=== PATIENT | female | born 1980 | race American Indian/Alaskan Native ===

== ENCOUNTER 2017-03-16 10:42 | Emergency (ER) | payer SELFPAY ==
--- NOTE | 2017-03-16 10:50 | Emergency Department Report ---
Chief Complaint: Vaginal Bleeding Stated Complaint: BLOOD LOSS,BACK PAIN,MIGRAINES Time Seen by Provider: 03/16/17 10:47 - HPI History of Present Illness: PT states she had heavy vaginal bleeding x 2 days (Thursday and Thursday) PT states she was passing large clots and states she passed five of them. PT states her last normal period was in December and she had two periods in January. - ROS Review of Systems: + abnormal menstrual cycle + low back pain + headache - Exam Physical Exam: pt looks well, non toxic. No acute distress ABD is soft and non tender MSE screening note: Focused history and physical exam performed. Due to findings the following was ordered: labs, us ED Disposition for MSE Condition: Stable
[2017-03-16 10:51] VITALS: BP 123/72
[2017-03-16 11:19] LABS: Basophils % (Auto) 1.2 % (0.0-1.8); Eosinophils % (Auto) 3.5 % (0.0-4.3); Hematocrit 39.5 % (30.3-42.9); Hemoglobin 13.5 gm/dl (10.1-14.3); Mean Corpuscular HGB Conc 34 % (30-34); Mean Corpuscular Hemoglobin 26 pg (28-32); Mean Corpuscular Volume 75 fl (79-97); Red Blood Count 5.26 M/mm3 (3.65-5.03); Red Cell Distribution Width 14.6 % (13.2-15.2); White Blood Count 6.4 K/mm3 (4.5-11.0)
[2017-03-16 11:27] LABS: Alanine Aminotransferase 7 units/L (7-56); Albumin/Globulin Ratio 1.3 %; Alkaline Phosphatase 59 units/L (35-129); Anion Gap 17 mmol/L; BUN/Creatinine Ratio 11.25; Blood Urea Nitrogen 9 mg/dL (7-17); Carbon Dioxide 25 mmol/L (22-30); Chloride 103.5 mmol/L (98-107); Glucose 91 mg/dL (65-100); Potassium 4.7 mmol/L (3.6-5.0); Sodium 141 mmol/L (137-145)
--- NOTE | 2017-03-16 12:13 | Ultrasound Report ---
ULTRASOUND PELVIS COMPLETE - TRANSABDOMINAL AND TRANSVAGINAL: INDICATION: Heavy vaginal bleeding. COMPARISON: None similar at this institution. FINDINGS: Transabdominal and transvaginal pelvic sonography performed in this patient with LMP of 03/12/2017 demonstrates a homogenous, anteverted uterus estimated at 8.9 x 5.6 x 5.1 cm. Bilaminar endometrial thickness estimated at 1.4 cm. No significant pelvic free fluid. Small nabothian cyst. Right ovary is 3.9 x 1.9 x 2.5 cm with a 1.6 follicular cyst and minimal periovarian fluid. Unremarkable left ovary measuring 3 x 2.6 x 2.4 cm. CONCLUSION: No significant pelvic sonographic abnormality, as described. Thank you for the opportunity to participate in this patient's care.
[2017-03-16 12:21] LABS: Platelet Count 187 K/mm3 (140-440)
[2017-03-16 12:54] LABS: Bilirubin,Urine NEG (Negative); Blood,Urine NEG (Negative); Ketones,Urine NEG (Negative); Leukocyte Esterase,Urine NEG (Negative); Nitrite,Urine NEG (Negative); Protein,Urine <15 mg/dL mg/dL (Negative); Urobilinogen,Urine < 2.0 mg/dL (<2.0)
[2017-03-16 12:57] LABS: RBC,Urine < 1.0 /HPF (0.0-6.0); WBC,Urine < 1.0 /HPF (0.0-6.0)
[2017-03-16] MEDS ORDERED: NORCO 7.5/325 PO ONE (15:11)
[2017-03-16] MEDS ORDERED: REGLAN PO ONE (15:11)
[2017-03-16] MEDS ORDERED: BENADRYL PO ONE (15:11)
[2017-03-16] MEDS ORDERED: TORADOL IM ONE (15:11)
--- NOTE | 2017-03-16 18:47 | Emergency Department Report ---
ED Female HPI - General Chief complaint: Vaginal Bleeding Stated complaint: BLOOD LOSS,BACK PAIN,MIGRAINES Time Seen by Provider: 03/16/17 10:47 Source: patient Mode of arrival: Ambulatory Limitations: No Limitations - History of Present Illness Initial comments: 36 year old female presents to ED with vaginal bleeding, back pain and migraines. patient states she has history of migraines with this being classical migraine for her. patient states she was her on her period and the bleeding was more heavy than usual this time. patient is stable, neurologically intact and in no acute distress. patient denies recent injury or trauma. MD Complaint: vaginal bleeding Onset/Timin -: days(s) Severity: mild Quality: cramping, aching Consistency: constant Improves with: none Worsens with: menstrual period Are you Now?: No Associated Symptoms: denies other symptoms, vaginal bleeding, headaches. denies : vaginal discharge, abdominal pain, nausea/vomiting, fever/chills, loss of appetite, dysuria, hematuria, shortness of breath, syncope, weakness - Related Data Previous Rx's Medication Instructions Recorded Last Taken Type Butalb/Acetamin/Caff 50-325-40 1 tab PO Q6HR PRN #20 tablet 03/16/17 Unknown Rx [Fioricet] Allergies Allergy/AdvReac Type Severity Reaction Status Date / Time No Known Allergies Allergy Unverified 03/16/17 10:47 ED Review of Systems ROS: Stated complaint: BLOOD LOSS,BACK PAIN,MIGRAINES Other details as noted in HPI Constitutional: denies: chills, fever Eyes: denies: eye pain, eye discharge, vision change ENT: denies: ear pain, throat pain Respiratory: denies: cough, shortness of breath, wheezing Cardiovascular: denies: chest pain, palpitations Endocrine: no symptoms reported Gastrointestinal: denies: abdominal pain, nausea, diarrhea Genitourinary: abnormal menses. denies: urgency, dysuria, discharge Musculoskeletal: back pain. denies: joint swelling, arthralgia Skin: denies: rash, lesions Neurological: headache. denies: weakness, numbness, paresthesias, confusion, abnormal gait, vertigo Psychiatric: denies: anxiety, depression Hematological/Lymphatic: denies: easy bruising ED Past Medical Hx - Past Medical History Previous Medical History?: No - Surgical History Past Surgical History?: No - Social History Smoking Status: Never Smoker Substance Use Type: None - Medications Home Medications: Home Medications Medication Instructions Recorded Confirmed Last Taken Type Butalb/Acetamin/Caff 50-325-40 1 tab PO Q6HR PRN #20 tablet 03/16/17 Unknown Rx [Fioricet] ED Physical Exam - General Limitations: No Limitations General appearance: alert, in no apparent distress - Head Head exam: Present: atraumatic, normocephalic - Eye Eye exam: Present: normal appearance - ENT ENT exam: Present: mucous membranes moist - Neck Neck exam: Present: normal inspection - Respiratory Respiratory exam: Present: normal lung sounds bilaterally. Absent: respiratory distress - Cardiovascular Cardiovascular Exam: Present: regular rate, normal rhythm. Absent: systolic murmur, diastolic murmur, rubs, gallop - GI/Abdominal GI/Abdominal exam: Present: soft, normal bowel sounds. Absent: distended, tenderness, guarding - External exam: Present: normal external exam Speculum exam: Present: normal speculum exam - Extremities Exam Extremities exam: Present: normal inspection, full ROM - Back Exam Back exam: Present: normal inspection, full ROM. Absent: tenderness - Neurological Exam Neurological exam: Present: alert, oriented X3, normal gait - Psychiatric Psychiatric exam: Present: normal affect, normal mood - Skin Skin exam: Present: warm, dry, intact, normal color. Absent: rash ED Course Vital Signs 03/16/17 10:47 Temperature 98.2 F Pulse Rate 89 Respiratory 18 Rate Blood Pressure 123/72 O2 Sat by Pulse 100 Oximetry ED Medical Decision Making - Lab Data Result diagrams: 03/16/17 10:54 03/16/17 10:54 Labs 03/16/17 03/16/17 03/16/17 10:54 10:54 10:54 WBC 6.4 RBC 5.26 H Hgb 13.5 Hct 39.5 MCV 75 L MCH 26 L MCHC 34 RDW 14.6 Plt Count 187 Lymph % (Auto) 34.9 Perry % (Auto) 4.7 Eos % (Auto) 3.5 Baso % (Auto) 1.2 Lymph # 2.2 Perry # 0.3 Eos # 0.2 Baso # 0.1 Seg Neutrophils % 55.7 Seg Neutrophils # 3.6 Sodium 141 Potassium 4.7 Chloride 103.5 Carbon Dioxide 25 Anion Gap 17 BUN 9 Creatinine 0.8 Estimated GFR > 60 BUN/Creatinine Ratio 11.25 Glucose 91 Calcium 9.0 Total Bilirubin 0.30 AST 12 ALT 7 Alkaline Phosphatase 59 Total Protein 7.0 Albumin 4.0 Albumin/Globulin Ratio 1.3 HCG, Qual Negative Urine Color Urine Turbidity Urine pH Ur Specific [place] Urine Protein Urine Glucose (UA) Urine Ketones Urine Blood Urine Nitrite Urine Bilirubin Urine Urobilinogen Ur Leukocyte Esterase Urine WBC (Auto) Urine RBC (Auto) 03/16/17 12:02 WBC RBC Hgb Hct MCV MCH MCHC RDW Plt Count Lymph % (Auto) Perry % (Auto) Eos % (Auto) Baso % (Auto) Lymph # Perry # Eos # Baso # Seg Neutrophils % Seg Neutrophils # Sodium Potassium Chloride Carbon Dioxide Anion Gap BUN Creatinine Estimated GFR BUN/Creatinine Ratio Glucose Calcium Total Bilirubin AST ALT Alkaline Phosphatase Total Protein Albumin Albumin/Globulin Ratio HCG, Qual Urine Color Yellow Urine Turbidity Clear Urine pH 5.0 Ur Specific [place] 1.017 Urine Protein <15 mg/dl Urine Glucose (UA) Neg Urine Ketones Neg Urine Blood Neg Urine Nitrite Neg Urine Bilirubin Neg Urine Urobilinogen < 2.0 Ur Leukocyte Esterase Neg Urine WBC (Auto) < 1.0 Urine RBC (Auto) < 1.0 - Radiology Data Radiology results: report reviewed Transvaginal ultrasound: right ovarian follicular cyst 1.6 in size - Medical Decision Making 36 year old female presents to ED with vaginal bleeding, headache, back pain. patient has normal H&H and normal pelvic exam with negative wet prep. patient has no UTI present in urine sample and negative preg test. patient is stable, neurologically intact and in no acute distress. Critical care attestation.: If time is entered above; I have spent that time in minutes in the direct care of this critically ill patient, excluding procedure time. ED Disposition Clinical Impression: Ovarian cyst Disposition: DC-01 TO HOME OR SELFCARE Is pt being admited?: No Does the pt Need Aspirin: No Condition: Stable Instructions: Ovarian Cyst (ED) Prescriptions: Butalb/Acetamin/Caff 50-325-40 [Fioricet] 1 tab PO Q6HR PRN #20 tablet PRN Reason: Headache Referrals: PRIMARY CARE, [Primary Care Provider] - 3-5 Days Forms: Work/School Release Form(ED)
== END 2017-03-16 17:36 | disposition home or self-care (01) ==
LOC: ED 10:42
DX: N83.209 Unspecified ovarian cyst, unspecified side (principal)
CPT/HCPCS: 36415; 76830; 76856; 80053; 81001; 84703; 85025; 87210; 87591; 96372; 99284; J1885

== ENCOUNTER 2017-08-25 10:09 | Emergency (ER) | payer OTHER ==
[2017-08-25 11:18] VITALS: BP 115/73
--- NOTE | 2017-08-25 11:32 | Emergency Department Report ---
Eye Injury/Foreign Body - HPI Eye Location: Bilateral Severity: None Tetanus Status: Up to Date Eye Symptoms: Eye Pain: No, Blurred Vision: No, Eye Redness: Yes (bilateral eyes .right greater than left), Grinding/Hammering Metal: No, Used Eye Protection: No, Contact Lens Use: No, Recalls Injury: No, Photophobia: No Other History: Patient reports that she has pinkeye that started in her right eye and now going to the left eye. Denies any eye pain. She reports eye is very itchy. Denies any trauma to her eyes. Denies any foreign body sensation denies. She reported to triage nurse that she was having pain in her eyes for the 10 but patient said it's itchiness not pain. Denies wearing contact lenses or glasses. Tetanus vaccine is up-to-date. Denies any loss of vision. ED Review of Systems ROS: Stated complaint: PINK EYE Other details as noted in HPI Comment: All other systems reviewed and negative Constitutional: no symptoms reported Eyes: eye discharge, other (bilateral eye redness). denies: eye pain, vision change Respiratory: no symptoms reported Cardiovascular: denies: chest pain, palpitations, edema, syncope Gastrointestinal: denies: abdominal pain, nausea, vomiting Genitourinary: denies: dysuria Musculoskeletal: denies: back pain, joint swelling, arthralgia, myalgia Skin: denies: rash Neurological: denies: headache, vertigo ED Past Medical Hx - Past Medical History Previous Medical History?: No - Surgical History Past Surgical History?: No - Family History Family history: hypertension - Social History Smoking Status: Current Every Day Smoker Substance Use Type: None - Medications Home Medications: Home Medications Medication Instructions Recorded Confirmed Last Taken Type Butalb/Acetamin/Caff 50-325-40 1 tab PO Q6HR PRN #20 tablet 03/16/17 Unknown Rx [Fioricet] Gentamicin 0.3% Ophth Soln 2 drops OU Q8H 7 Days #1 bottle 08/25/17 Unknown Rx Eye Injury Exam - Exam General: Vital signs noted. No distress. Alert and acting appropriately. This is a 36-year-old female well-nourished well-developed in no acute distress. - Visual Acuity Right Vision Acuity Degree: 20/40 Eye Exam: Both Injection, Both EOMI, Both Mucous Discharge, Neither Chemosis, Neither Abnormal Pupil, Neither Eye Foreign Body, Neither Lid Foreign Body, Neither Purulent Discharge, Neither Corneal Edema, Neither Photophobia Left Vision Acuity Degree: 20/30 Eye Exam: Both Injection, Both EOMI, Both Mucous Discharge, Neither Chemosis, Neither Abnormal Pupil, Neither Eye Foreign Body, Neither Lid Foreign Body, Neither Purulent Discharge, Neither Corneal Edema, Neither Photophobia Bilateral Vision Acuity Degree: 20/25 Eye Exam: Both Injection, Both EOMI, Both Mucous Discharge, Neither Chemosis, Neither Abnormal Pupil, Neither Eye Foreign Body, Neither Lid Foreign Body, Neither Purulent Discharge, Neither Corneal Edema, Neither Photophobia Exam: Ears: Bilateral TM pearly neff, bilaterally E is seen without any redness or drainage. No mastoid bone tenderness. Nose: Bilateral nasal mucosa normal, no maxillary or frontal sinus tenderness. Mouth: Moist, no pharyngeal exudate or erythema. Uvula is midline and oral airways patent. No peritonsillar abscess. Lungs: Clear to auscultation bilaterally, no rhonchi wheezes or rales and no work of breathing. CV: S1, S2. Regular rate and rhythm. Negative murmur. Extremity: No clubbing, cyanosis or edema. +2 pulses in all extremities. No neurovascular compromise ED Course Vital Signs 08/25/17 11:17 Temperature 98.6 F Pulse Rate 83 Respiratory 18 Rate Blood Pressure 115/73 O2 Sat by Pulse 100 Oximetry - Reevaluation(s) Reevaluation #1: 08/25/17 11:50 Visual acuity done in ER area and stable ED Medical Decision Making - Medical Decision Making ED course: She and here complaining of pinkeye symptoms with severe itching and denies any pain. Patient found to have bilateral conjunctival conjunctivitis. I discussed diagnosis and treatment plan with patient and she voiced understanding. Patient discharged from the ED in stable condition with prescription for gentamicin ophthalmic and to follow-up with tree surgeon in 2-3 days Critical care attestation.: If time is entered above; I have spent that time in minutes in the direct care of this critically ill patient, excluding procedure time. ED Disposition Clinical Impression: Conjunctivitis Qualifiers: Conjunctivitis type: acute Acute conjunctivitis type: bacterial Laterality: bilateral Qualified Code(s): H10.33 - Unspecified acute conjunctivitis, bilateral Disposition: DC-01 TO HOME OR SELFCARE Is pt being admited?: No Does the pt Need Aspirin: No Condition: Stable Instructions: Conjunctivitis (ED) Additional Instructions: Please practice good hand hygiene. Use gentamicin eyedrop 3 times a day for 7 days. Please follow up with tree surgeon in 2-3 days If symptoms worsen, please return to the emergency room or if you can get an appointment with tree surgeon he can do so. Please read discharge instructions on pinkeye (conjunctivitis) Prescriptions: Gentamicin 0.3% Ophth Soln 2 drops OU Q8H 7 Days #1 bottle Referrals: MANJIT WAGNER MD [Staff Physician] - 2-3 Days Forms: Work/School Release Form(ED), Accompanied Note
== END 2017-08-25 12:05 | disposition home or self-care (01) ==
LOC: ED 10:09
DX: H10.33 Unspecified acute conjunctivitis, bilateral (principal); F17.200 Nicotine dependence, unspecified, uncomplicated
CPT/HCPCS: 99282